=== PATIENT | female | born 1970 | race Caucasian/White ===

== ENCOUNTER 2017-11-05 14:00 | Inpatient (IN) | payer BC ==
[~2017-11-05] VITALS: Ht 172.7 cm; Wt 125.7 kg
[~2017-11-05 14:00] MED LIST: ALKA-SELTZER P1 EAC3 PO; AMOXICILLIN500 M1 PO; B-12500 MCG PO; CALCIUM + VITA1 EACH; CETIRIZINE HCL10 MG PO; CHROMIUM PICO200 MC1 PO; CINNAMON500 MG PO; CLINDAMYCIN HC300 MG PO; CO Q10200 MG PO; COUGH DROPS PO; DELSYM30 MG/5 M1 PO; FLAGYL500 MG PO; FLAX SEED OIL1000 MG PO; FOLIC ACID0.8 MG PO; GREEN TEA315 MG PO; GUAIFENESIN400 MG PO; IRON27 MG PO; VITAMIN C500 M4 PO; [UNRECOGNIZED DRUG - OTHER]; [UNRECOGNIZED DRUG - OTHER]; [UNRECOGNIZED DRUG - OTHER]
[2017-11-05 15:05] LABS: BASOPHILS % 0.7 % (0.0-1.0); EOSINOPHILS # (AUTO) 0.1 (0.0-0.4); EOSINOPHILS % 2.2 % (0.0-6.0); HEMATOCRIT 38.1 % (34.2-44.1); HEMOGLOBIN 12.4 g/dL (12.0-16.0); LYMPHOCYTES # (AUTO) 1.8 (1.0-3.2); LYMPHOCYTES % 33.1 % (18.0-39.1); MEAN CORPUSCULAR HEMOGLOBIN 27.2 pg (28-32); MEAN CORPUSCULAR HGB CONC 32.5 g/dL (31-35); MEAN CORPUSCULAR VOLUME 83.6 fL (81-99); MONOCYTES # (AUTO) 0.3 (0.2-0.8); MONOCYTES % 5.2 % (4.4-11.3); NEUTROPHILS # (AUTO) 3.1 (2.1-6.9); NEUTROPHILS % 58.2 % (38.7-80.0); PLATELET COUNT 278 x10e3/uL (140-360); RED BLOOD COUNT 4.56 x10e6/uL (3.6-5.1); RED CELL DISTRIBUTION WIDTH 12.5 % (11.7-14.4)
[2017-11-05 15:07] LABS: BILIRUBIN,URINE NEGATIVE (NEGATIVE); CLARITY,URINE CLEAR (CLEAR); COLOR,URINE YELLOW (YELLOW); KETONES,URINE NEGATIVE (NEGATIVE); LEUKOCYTE ESTERASE ,URINE NEGATIVE (NEGATIVE); NITRITE,URINE NEGATIVE (NEGATIVE); PROTEIN,URINE DIPSTICK NEGATIVE (NEGATIVE); URINE UROBILINOGEN 0.2 mg/dL (0.2 - 1)
[2017-11-05 15:23] LABS: ALANINE AMINOTRANSFERASE 19 IU/L (0-55); ALBUMIN 3.3 g/dL (3.5-5.0); ALBUMIN/GLOBULIN RATIO 0.7 (0.8-2.0); ALKALINE PHOSPHATASE 73 IU/L (40-150); BLOOD UREA NITROGEN 12 mg/dL (7-26); BUN/CREATININE RATIO 17 (6-25); CALCIUM 10.1 mg/dL (8.4-10.2); CARBON DIOXIDE 25 mmol/L (22-29); CHLORIDE 106 mmol/L (98-107); CREATININE, SERUM 0.72 mg/dL (0.57-1.11); EST GLOMERULAR FILTRATION RATE > 60 ML/MIN (60-); GLUCOSE 111 mg/dL (74-118); SODIUM 143 mmol/L (136-145)
[2017-11-05 15:23] LABS: WBC,URINE (MAN) 0-5 /HPF (0-5)
[2017-11-05 15:24] LABS: BACTERIA,URINE MODERATE /HPF; EPITHELIAL CELLS,URINE FEW /LPF
[2017-11-05] MEDS ORDERED: CEFOXITIN 1GM/ DEXTROSE 50ML 50 ML IV STA (16:36)
[2017-11-05] MEDS ORDERED: VANCOMYCIN 1GM/NS 250 ML 250 ML IV STA (16:36)
[2017-11-05] MEDS ORDERED: ONDANSETRON HCL INJ 2 MG/ML VIAL IV PRN (16:45)
[2017-11-05] MEDS ORDERED: SODIUM CHLORIDE FLUSH 10 ML SYR INJ PRN (16:45)
[2017-11-05] MEDS ORDERED: HYDROMORPHONE 1MG/1ML INJ IV PRN (16:45)
[2017-11-05] MEDS ORDERED: HYDROMORPHONE 2MG/ML INJ IV PRN (17:00)
[2017-11-05] MEDS ORDERED: NIFEDIPINE 10 MG CAP ONE (19:22)
[2017-11-05 20:00] VITALS: BP 107/60
--- NOTE | 2017-11-05 20:37 | Diagnostic Imaging Report ---
CT scan of the RIGHT upper leg, WITHOUT injected contrast. TECHNIQUE: Standard departmental protocols were used. Sagittal and coronal reformatted images were obtained. HISTORY: Right inner thigh boil/redness and swelling. COMPARISON: None. FINDINGS: Bones: Intact. No periosteal reaction. Joints: Bilateral total knee arthroplasty. Soft tissues: Thigh musculature is intact. Deep fascia is intact. Skin thickening along the medial aspect of the right thigh is visualized consistent with known cellulitis. No drainable fluid collections. IMPRESSION: 1. Skin thickening along the medial aspect of the right thigh is visualized consistent with known cellulitis. No drainable fluid collections. 2. Deep fascia and muscles are not involved. Signed by: Dr. Bayron Leal M.D. on 11/05/2017 8:34 PM
[2017-11-05 21:50] VITALS: BP 113/83
[2017-11-06] VITALS (7 sets, daily range): BP systolic 110–166; BP diastolic 57–77
[2017-11-06] MEDS: VANCOMYCIN 1GM/NS 250 ML 250 ML IV SCH (14:04)
[2017-11-06] MEDS: CEFEPIME HCL 1 GM VIAL IV SCH (14:04)
[2017-11-06] MEDS: HYDROCODONE/APAP 10MG-325MG TAB PO PRN ×2 (14:13→23:43)
[2017-11-06] MEDS: SENNOSIDES 8.6 MG TAB PO SCH (16:00)
--- NOTE | 2017-11-06 18:31 | History and Physical ---
PCP: Dr. Seven Solo CHIEF COMPLAINT: Right thigh abscess and drainage. HISTORY: Patient is a 47-year-old female with fever and right thigh small lesion developed into a large abscessed area with cellulitis and also with a port of entry. There is pus coming out. The patient is admitted for IV antibiotics. She is allergic to clindamycin, Avelox, fluoroquinolone, and also erythromycin base. The patient is otherwise stable. She did receive vancomycin overnight and she did feel better. There area still remains with drainage. There is redness and tender to touch. There is expressed pus with discharge. The patient occasionally every few months she has some boil infection, but usually goes away by itself. The patient otherwise is stable. Her blood sugar is normal. No history of diabetes. The patient has no other significant medical history. She works as a massage therapist. PAST MEDICAL HISTORY: Recurrent boil infection. PAST SURGICAL HISTORY: Noncontributory. SOCIAL HISTORY: Patient does not smoke or use alcohol. No regular drugs. ALLERGIES: CLINDAMYCIN, ERYTHROMYCIN BASE, SINGULAIR, AVELOX, AND FLUOROQUINOLONE HOME MEDICATIONS: Basically supplements. PHYSICAL EXAMINATION VITAL SIGNS: Temperature is 98, blood pressure 112/58, pulse rate 68, respirations 18. GENERAL: The patient is not in acute distress. She is awake. HEENT: Normocephalic, atraumatic and anicteric. NECK: Supple grossly. PULMONARY: Clear. CARDIOVASCULAR: Regular rate and rhythm. ABDOMEN: Positive bowel sounds. Nontender and no distention. EXTREMITIES: Right inner thigh abscess with drainage. NEUROLOGIC: No focal deficit. LABORATORY: WBC is 5.3, hemoglobin 12.4, hematocrit 38, and platelets is 278,000. Sodium is 143, potassium 4, chloride 106, bicarb 25, BUN 12, creatinine 0.7, glucose 111. IMPRESSION 1. Right inner thigh abscess with cellulitis. 2. Recurrent boil infection. PLAN: Nasal swab for MRSA. Wound culture and blood culture. IV antibiotics of vancomycin and cefepime. Will wait for the culture result. The patient will see Dr. Nair. May need incision and drainage of the right thigh wound. Job#: [id number] [place]
[2017-11-07] VITALS (8 sets, daily range): BP systolic 111–133; BP diastolic 58–83
[2017-11-07] MEDS: VANCOMYCIN 1GM/NS 250 ML 250 ML IV SCH ×2 (00:33→13:00)
[2017-11-07] MEDS: CEFEPIME HCL 1 GM VIAL IV SCH ×2 (00:33→13:00)
--- NOTE | 2017-11-07 04:59 | Consultation ---
DATE OF CONSULTATION: November 06, 2017 REFERRING PHYSICIAN: Dr. Ronal Herrera. HPI: Patient is a 47-year-old female admitted with complaints of redness and swelling in her right thigh. It started several days ago, progressively worsened. She came to the emergency room where it started to drain spontaneously. Says since she has arrived in the hospital, it has improved considerably. The redness is much less. She received only 1 dose of antibiotics. Patient has not had similar problems in the past. She has not had any fever. PAST MEDICAL HISTORY: Significant for previous hysterectomy, previous bilateral knee surgeries. MEDICATIONS: She is on multiple medications at home which include vitamins, Zyrtec, been on clindamycin, DesOwen, and Flagyl. ALLERGIES: AVELOX, CLINDAMYCIN, ERYTHROMYCIN, AND MONTELUKAST. FAMILY HISTORY: Noncontributory. SOCIAL HISTORY: Patient does not smoke cigarettes or drink alcohol. REVIEW OF SYSTEMS: As stated above, she has not had any fever or weight loss. PHYSICAL EXAMINATION GENERAL: The patient is awake and alert. VITAL SIGNS: Normal. HEENT: No scleral icterus. NECK: No masses. LUNGS: Equal breath sounds are clear. CARDIAC: Regular rate and rhythm. ABDOMEN: Soft without tenderness. EXTREMITIES: In the right thigh, medially there is erythema that is pretty large about 20 cm in diameter. Essentially there is an open area about 1 cm with a small amount of purulent drainage, but no abscess cavity. There is some surrounding induration. ASSESSMENT: A 47-year-old female with cellulitis of right thigh. She had a small abscess which appears to drain spontaneously. No additional surgery is needed at this time. Recommend continue antibiotics as have been ordered. Thank you for asking me to see Ms. Lopez. Job#: [id number] [place]
[2017-11-07] MEDS: SENNOSIDES 8.6 MG TAB PO SCH ×2 (09:00→17:00)
[2017-11-08] MEDS: VANCOMYCIN 1GM/NS 250 ML 250 ML IV SCH ×2 (00:29→13:00)
[2017-11-08] MEDS: CEFEPIME HCL 1 GM VIAL IV SCH ×2 (00:29→13:00)
[2017-11-08 05:11] VITALS: BP 122/70
[2017-11-08 07:27] VITALS: BP 112/72
[2017-11-08] MEDS: SENNOSIDES 8.6 MG TAB PO SCH (09:11)
[2017-11-08] MEDS ORDERED: MUPIROCIN 2% OINT 22 GM TUBE TOP SCH (10:00)
--- NOTE | 2017-11-08 10:23 | Discharge Summary ---
FINAL DIAGNOSES 1. Right thigh abscess with drainage associated with methicillin-resistant Staphylococcus aureus bacterial infection. 2. 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 3. Recurrent boil infection. SUMMARY: This is a 47-year-old female patient of Dr. Seven Solo came in with right thigh abscess. It started out as a small boil and developed into an abscess with a port of entry opening. The culture grew out to be MRSA. The patient has recurrent boil infections. Therefore, a nasal swab was done showing that the patient is a carrier for MRSA. Bactroban ointment is given. Patient is stable. She will go home with Bactroban ointment applied to the nares twice a day for 10 days. She will get clindamycin 300 mg every 6 hours for 7 days. The patient is stable. She will get Bacid for probiotic. Discussed with the patient. She will follow up with Dr. Solo this week some time. The patient is stable for discharge home today. Job#: [id number] [place]
[2017-11-08 11:22] VITALS: BP 133/79
== END 2017-11-08 14:46 | disposition home or self-care (01) | DRG 603 ==
LOC: ER 14:00 → ERHOLD 16:50 → ER 17:42 → ERHOLD 17:45 → MED/SURG3 19:37
PROVIDERS: ADMIT Internal Medicine; ATTEND Internal Medicine
DX: L02.425 Furuncle of right lower limb (principal); L02.818 Cutaneous abscess of other sites; B95.62 Methicillin resistant Staphylococcus aureus infection as the cause of diseases classified elsewhere
CPT/HCPCS: 36415; 80053; 80202; 81001; 83605; 85025; 87040; 87071; 87081; 87086; 87186; 87205; 99284; J0692; J2405; J3370

== ENCOUNTER → 2019-10-23 | Outpatient (CLI) | payer BC ==
--- NOTE | 2019-11-07 08:41 | Diagnostic Imaging Report ---
#[id number] - [id number] #BILATERAL FIRST EVER DIGITAL SCREENING MAMMOGRAM WITH CAD: 10/23/2019 CLINICAL: Routine screening. Baseline exam. No prior exams were available for comparison. The tissue of both breasts is predominantly fatty. Current study was also evaluated with a Computer Aided Detection (CAD) system. There are benign lymph nodes in both breasts. No significant masses, calcifications, or other findings are seen in either breast. IMPRESSION: BENIGN There is no mammographic evidence of malignancy. A 1 year screening mammogram is recommended. The patient will be notified by letter of the results. PEARL khan/anival:11/06/2019 11:32:20 Plant Care Worker: Steffanie BAXTER(R)(M), [facility] letter sent: Compared to Prior B9 Mammogram BI-RADS: 2 Benign
== END ==
LOC: MAMMO 13:19
PROVIDERS: ATTEND Specialist
DX: Z12.31 Encounter for screening mammogram for malignant neoplasm of breast (principal)
CPT/HCPCS: 77067